=== PATIENT | male | born 1945 | race Caucasian/White ===

== ENCOUNTER 2020-02-03 12:19 | Day surgery (SDC) | payer MEDICARE ==
[~2020-02-03] VITALS: Ht 175.3 cm; Wt 112.5 kg
[~2020-02-03 12:19] MED LIST: ALBU83IN INH; ANOR1AER IN; ELIQ5TAB PO; LR 1,000 ML IV ONE; METO1TAB32 PO; ONETAB32 PO; ONETAB33 PO; TORS10TA3 PO; VITA100T14 PO; VITA500T40 PO; ZYRTTAB8 PO
[2020-02-03 13:41] LABS: ALBUMIN 3.4 GM/DL (3.2-5.2); BLOOD UREA NITROGEN 20 MG/DL (7-18); CALCIUM LEVEL 9.1 MG/DL (8.8-10.2); CARBON DIOXIDE LEVEL 28 MEQ/L (21-32); CHLORIDE LEVEL 109 MEQ/L (98-107); CHOLESTEROL LEVEL 183 MG/DL (<200); CHOLESTEROL RISK RATIO 4.575 (<5); CREATININE FOR GFR 0.95 MG/DL (0.70-1.30); GLOMERULAR FILTRATION RATE > 60.0 (>42); GLUCOSE, FASTING 119 MG/DL (70-100); HDL CHOLESTEROL 40 MG/DL (>40); LDL CHOLESTEROL 120 MG/DL (<100); MAGNESIUM LEVEL 2.3 MG/DL (1.8-2.4); NON-HDL-C 143 MG/DL; NT-PRO BNP 991 PG/ML (<450); POTASSIUM SERUM 4.3 MEQ/L (3.5-5.1); SODIUM LEVEL 142 MEQ/L (136-145); TRIGLYCERIDES LEVEL 114 MG/DL (<150)
[2020-02-03] MEDS ORDERED: LIDOCAINE VISCOUS 2% SOLN 15ML UDC As Ordered ONE (14:09)
[2020-02-03] MEDS ORDERED: CETACAINE SPRAY 5GM As Ordered ONE (14:09)
[2020-02-03] MEDS ORDERED: propofoL 200 MG/20 ML VIAL As Ordered ONE (14:51)
[2020-02-03] MEDS ORDERED: LIDOCAINE 2% INJ 100 MG/5 ML SDV (FOR ANES.) As Ordered ONE (14:51)
[2020-02-03] MEDS ORDERED: MIDAZOLAM INJ 2 MG/2 ML VIAL (J2250) As Ordered ONE (14:51)
[2020-02-03] MEDS ORDERED: fentaNYL 100 MCG/2 ML INJECTION (J3010) As Ordered ONE (14:51)
[2020-02-03 15:35] VITALS: BP 139/64
--- NOTE | 2020-02-03 16:29 | T-ECHO ---
DATE OF PROCEDURE: 02/03/2020 REFERRING PHYSICIAN: Dr. 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 PREPROCEDURE DIAGNOSIS: Rheumatic mitral valve disease (mitral stenosis and mitral regurgitation), rheumatic aortic valve disease (aortic stenosis). 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 PRINCIPAL FINDINGS: Rheumatic mitral valve disease with moderate mitral stenosis and moderate mitral regurgitation, nonrheumatic aortic valve disease (degenerative, calcific) with mild aortic regurgitation, moderate atheroma involving the thoracic aorta. PROCEDURE PERFORMED BY: Jeffrey Chatterjee MD FORECLOSURE PARALEGAL: None. IV SEDATION: Propofol IV per INTERACTIVE DESIGNER. COMPLICATIONS: None. FORECLOSURE PARALEGAL: None. PROCEDURE DESCRIPTION: Rhythm was atrial fibrillation. After the patient received adequate IV sedation, esophageal intubation was accomplished without difficulty by Dr. Cahtterjee using a Jhonatan three-dimensional transesophageal echocardiogram probe. Rhythm was atrial fibrillation with controlled ventricular response. Left ventricle appeared normal in size and systolic function and without regional wall motion abnormalities. Left ventricle ejection fraction was 60% by visual estimate. Right ventricle appeared normal in size and systolic function. At least mild left atrial enlargement. Right atrium was probably normal in size. Atrial septum was intact anatomically and by color flow Doppler. Aortic valve was 3-cusp and displayed moderate focal thickening and focal calcific deposits, primarily adjacent to the commissures. No fusion of the aortic cusps. The central portions of the aortic cusp appeared normal consistent with nonrheumatic degenerative, calcific aortic valve disease. Mild aortic regurgitation. By visual assessment, there did not appear to be any significant aortic stenosis. The mitral leaflets were diffusely thickened of a mild to moderate degree, and there was some subpleural thickening. There was slight doming of the anterior mitral leaflet. Moderate mitral stenosis with measured peak mitral E velocities (CW) of 172 and 211 centimeters per second, mean mitral valve gradients of 7 and 9 mmHg, mitral pressure halftime measurements of 170 and 190 milliseconds, and mitral valve area calculations by Hatle pressure halftime methods of 1.16 and 1.29 centimeters squared. Overall consistent with moderate mitral stenosis. Moderate mitral regurgitation was present. Tricuspid leaflets appeared structurally and functionally normal with very mild tricuspid regurgitation. Pulmonic valve was structurally normal with trace pulmonic regurgitation. No pericardial effusion. The distal aortic arch and descending thoracic aorta showed patchy areas of up to moderate atheroma. No mobile components. CONCLUSIONS: 1. Rheumatic mitral valve disease with moderate mitral stenosis and moderate mitral regurgitation. 2. Nonrheumatic, degenerative, calcific aortic valve disease with mild aortic regurgitation. By visual assessment, there did not appear to be any significant aortic stenosis. 3. Normal left ventricle size and systolic function. Left ventricular ejection fraction (LVEF) 60% by visual estimate. 4. Moderate atheroma involving the distal aortic arch and descending thoracic aorta. No mobile components.
== END 2020-02-03 16:00 | disposition home or self-care (01) ==
LOC: M SDC 12:19
PROVIDERS: ATTEND Internal Medicine Cardiovascular Disease
DX: I05.0 Rheumatic mitral stenosis (principal); I05.1 Rheumatic mitral insufficiency; I48.91 Unspecified atrial fibrillation; I50.9 Heart failure, unspecified; J44.9 Chronic obstructive pulmonary disease, unspecified; Z79.01 Long term (current) use of anticoagulants; Z79.899 Other long term (current) drug therapy; Z87.891 Personal history of nicotine dependence
CPT/HCPCS: 36415; 80061; 80069; 83735; 83880; 84443; 93312; 93320; 93325; J2250; J3010

== ENCOUNTER → 2021-10-15 | Outpatient (CLI) | payer MEDICARE ==
[~2021-10-15] MED LIST changes: -LR 1,000 ML IV ONE
== END ==
LOC: M SLEEP HO 10:38
PROVIDERS: ATTEND Internal Medicine Cardiovascular Disease
DX: I27.81 Cor pulmonale (chronic) (principal)

== ENCOUNTER → 2022-04-10 | Outpatient (CLI) | payer MEDICARE ==
[~2022-04-10] MED LIST changes: +ALBU2.5V10 INH; -ALBU83IN INH
== END ==
LOC: M SLEEP 20:00
PROVIDERS: ATTEND Internal Medicine Pulmonary Disease
DX: G47.33 Obstructive sleep apnea (adult) (pediatric) (principal)

== ENCOUNTER → 2022-09-04 | Outpatient (CLI) | payer MEDICARE | LOC: M WHC 09:43 | PROVIDERS: ATTEND Physician Assistant | DX: R55 Syncope and collapse (principal) ==